=== PATIENT | male | born 1990 | race Caucasian/White ===

== ENCOUNTER → 2016-12-13 | Outpatient (REF) | payer OTHER | LOC: M LAB REF 14:55 | PROVIDERS: ATTEND Physician Assistant Medical | DX: R50.9 Fever, unspecified (principal) ==

== ENCOUNTER 2023-02-18 22:25 | Emergency (ER) | payer OTHER, SELFPAY ==
[~2023-02-18] VITALS: Ht 167.6 cm; Wt 64.5 kg
[2023-02-18 22:28] VITALS: BP 144/85
[2023-02-19] MEDS ORDERED: CLINDAMYCIN 150MG CAPSULE PO ONE (02:40)
[2023-02-19] MEDS ORDERED: IBUPROFEN 800 MG TAB PO ONE (02:40)
[2023-02-19] MEDS ORDERED: CLIN150C17 PO (02:44)
[2023-02-19] MEDS ORDERED: IBUP80TA PO (02:44)
[2023-02-19] MEDS ORDERED: UNRESOLVED CLARIFICATION ENTRY XX STA (02:47)
== END 2023-02-19 02:53 | disposition home or self-care (01) ==
LOC: M ED 22:25
DX: K04.7 Periapical abscess without sinus (principal)

== ENCOUNTER 2024-08-24 06:29 | Emergency (ER) | payer OTHER ==
[~2024-08-24] VITALS: Ht 167.6 cm; Wt 66.9 kg
[~2024-08-24 06:29] MED LIST: CLIN150C17 PO; IBUP80TA PO
[2024-08-24] MEDS: methylPREDNISolone 125MG 2ML VIAL IV ONE (07:02)
[2024-08-24] MEDS: diphenhydrAMINE 50MG/ML VIAL IV STA (07:02)
[2024-08-24] MEDS: FAMOTIDINE 20MG/2ML VIAL IVP ONE (07:07)
[2024-08-24] MEDS ORDERED: D400400C PO (08:06)
[2024-08-24] MEDS ORDERED: THERTAB52 PO (08:06)
[2024-08-24] MEDS ORDERED: OMEG12003 PO (08:06)
[2024-08-24] MEDS ORDERED: HOME MED LIST COMPLETE! XX SCH (08:10)
[2024-08-24] MEDS ORDERED: PRED20TA PO (08:35)
[2024-08-24] MEDS ORDERED: CETI10CH PO (08:40)
[2024-08-24] MEDS ORDERED: PEPC1TAB5 PO (08:40)
[2024-08-24] MEDS ORDERED: EPIP0.3I2 IM (08:43)
[2024-08-24 09:33] VITALS: BP 124/68; TEMP 97.6; O2SAT 99
== END 2024-08-24 09:35 | disposition home or self-care (01) ==
LOC: M ED 06:29
DX: T78.40XA Allergy, unspecified, initial encounter (principal); K13.0 Diseases of lips; Z88.0 Allergy status to penicillin; Z88.2 Allergy status to sulfonamides; Z79.2 Long term (current) use of antibiotics; Z79.52 Long term (current) use of systemic steroids; Z79.899 Other long term (current) drug therapy
CPT/HCPCS: 93041; 94760; 96374; 96375; 99284; J1200; J2919; S0028

== ENCOUNTER → 2024-09-10 | Outpatient (REF) | payer OTHER ==
[~2024-09-10] MED LIST changes: +CETI10CH PO; +D400400C PO; +EPIP0.3I2 IM; +OMEG12003 PO; +PEPC1TAB5 PO; +PRED20TA PO; +THERTAB52 PO
[2024-09-10 13:49] LABS: BASO % 0.5 % (0.0-1.0); EOS # 0.1 10^3/uL (0.0-0.5); EOS % 1.1 % (0.0-3.0); HEMATOCRIT 43.3 % (42.0-52.0); HEMOGLOBIN 14.5 g/dl (13.5-17.5); LYMPH # 2.5 10^3/uL (1.5-5.0); LYMPH % 36.9 % (24.0-44.0); MEAN CORPUSCULAR HEMOGLOBIN 33.1 pg (27.0-33.0); MEAN CORPUSCULAR HGB CONC 33.5 g/dl (32.0-36.5); MEAN CORPUSCULAR VOLUME 98.9 fl (80.0-96.0); MONO # 0.5 10^3/uL (0.0-0.8); MONO % 7.1 % (2.0-8.0); NEUTROPHILS # 3.6 10^3/uL (1.5-8.5); NEUTROPHILS % 54.2 % (36.0-66.0); PLATELET COUNT, AUTOMATED 277 10^3/uL (150-450); RED BLOOD COUNT 4.38 10^6/uL (4.30-6.10); WHITE BLOOD COUNT 6.6 10^3/uL (4.0-10.0)
[2024-09-10 13:52] LABS: C REACTIVE PROTEIN QUANTITATIV < 0.40 MG/DL (<1.0)
[2024-09-10 13:53] LABS: CHOLESTEROL LEVEL 218 MG/DL (<200); CHOLESTEROL RISK RATIO 3.92 (<5); ERYTHROCYTE SEDIMENTATION RATE 5 mm/hr (0-15); HDL CHOLESTEROL 55.5 MG/DL (>40); LDL CHOLESTEROL 139.7 MG/DL (<100); NON-HDL-C 162.5 MG/DL; TRIGLYCERIDES LEVEL 114 MG/DL (<150)
[2024-09-10 13:56] LABS: THYROID STIMULATING HORMONE 2.429 uIU/ML (0.55-4.78); TOTAL 25(OH) VITAMIN D 38.8 NG/ML (20.0-100.0)
[2024-09-10 14:24] LABS: HEMOGLOBIN A1c 5.3 % (4.0-6.0)
[2024-09-10 15:45] LABS: COMPLEMENT C4 24.6 MG/DL (12-36)
[2024-09-12 13:03] LABS: QuantiFERON-TB Gold Plus NEGATIVE (NEGATIVE)
== END ==
LOC: M LAB REF 12:49
PROVIDERS: ATTEND Nurse Practitioner Family
DX: R61 Generalized hyperhidrosis (principal); E66.3 Overweight; E55.9 Vitamin D deficiency, unspecified; Z11.9 Encounter for screening for infectious and parasitic diseases, unspecified; Z83.2 Family history of diseases of the blood and blood-forming organs and certain disorders involving the immune mechanism

== ENCOUNTER → 2024-10-10 | Outpatient (CLI) | payer OTHER ==
[2024-10-10 15:55] LABS: BASO % 0.5 % (0.0-1.0); EOS # 0.1 10^3/uL (0.0-0.5); EOS % 2.2 % (0.0-3.0); HEMATOCRIT 41.1 % (42.0-52.0); LYMPH # 2.2 10^3/uL (1.5-5.0); LYMPH % 40.5 % (24.0-44.0); MEAN CORPUSCULAR HEMOGLOBIN 33.3 pg (27.0-33.0); MEAN CORPUSCULAR HGB CONC 34.1 g/dl (32.0-36.5); MEAN CORPUSCULAR VOLUME 97.6 fl (80.0-96.0); MONO # 0.5 10^3/uL (0.0-0.8); MONO % 8.6 % (2.0-8.0); NEUTROPHILS # 2.6 10^3/uL (1.5-8.5); NEUTROPHILS % 47.8 % (36.0-66.0); PLATELET COUNT, AUTOMATED 279 10^3/uL (150-450); RED BLOOD COUNT 4.21 10^6/uL (4.30-6.10); WHITE BLOOD COUNT 5.5 10^3/uL (4.0-10.0)
[2024-10-10 16:00] LABS: ERYTHROCYTE SEDIMENTATION RATE 2 mm/hr (0-15)
[2024-10-10 16:20] LABS: ALBUMIN 3.7 G/DL (3.2-5.2); ALKALINE PHOSPHATASE 65 U/L (40-129); ALT/SGPT 18 U/L (7.0-40); AST/SGOT 12 U/L (<34); BILIRUBIN,TOTAL 0.4 MG/DL (0.3-1.2); BLOOD UREA NITROGEN 15 MG/DL (9-23); CALCIUM LEVEL 9.6 MG/DL (8.5-10.1); CARBON DIOXIDE LEVEL 32 MMOL/L (20-31); CHLORIDE LEVEL 103 MMOL/L (98-107); CREATININE FOR GFR 1.03 MG/DL (0.70-1.30); GLOMERULAR FILTRATION RATE > 60.0 (>60); GLUCOSE, FASTING 80 MG/DL (60-100); POTASSIUM SERUM 4.4 MMOL/L (3.5-5.1); RHEUMATOID FACTOR QUANT < 3.5 IU/ML (<14); SODIUM LEVEL 139 MMOL/L (136-145)
[2024-10-10 16:21] LABS: THYROXINE (T4) 7.3 UG/DL (4.5-10.9); TOTAL T3 94.5 NG/DL (60.0-181.0)
[2024-10-10 16:22] LABS: THYROID PEROXIDASE ANTIBODY < 28.0 U/ML (<60.0); THYROID STIMULATING HORMONE 1.358 uIU/ML (0.55-4.78)
== END ==
LOC: M LAB 15:09
PROVIDERS: ATTEND Allergy & Immunology Allergy
DX: L50.1 Idiopathic urticaria (principal)